=== PATIENT | female | born 1975 ===

== ENCOUNTER 2021-08-04 12:34 | Outpatient (CLI) | payer OTHER, SELFPAY ==
[2021-08-04 12:45] VITALS: BP 107/66; PULSE 86; RESP 20; TEMP 36.7; O2SAT 98; BMI 30.1
[2021-08-04 13:41] VITALS: BP 109/69; PULSE 79; RESP 20; O2SAT 97
[2021-08-04 14:35] VITALS: BP 98/52; PULSE 97; RESP 18; TEMP 36.5; O2SAT 97
== END 2021-08-04 12:35 | disposition home or self-care (01) ==
LOC: OPS 12:39
PROVIDERS: Visit Provider Nurse Practitioner
DX: U07.1 COVID-19 (principal)
CPT/HCPCS: 96365